=== PATIENT | female | born 1965 | race Caucasian/White ===

== ENCOUNTER 2020-02-07 15:52 | Emergency (ER) | payer MEDICAID ==
[~2020-02-07] VITALS: Ht 154.9 cm; Wt 104.3 kg
[~2020-02-07 15:52] MED LIST: IBUP-974 PO
[2020-02-07 16:02] VITALS: BP 117/71
--- NOTE | 2020-02-07 16:20 | NUR ---
C/O RUQ ABDOMINAL PAIN RADIATING TO RIGHT UPPER BACK, N/V/D X 2 WEEKS, HEADACHE X 3 DAYS.PT AOX4. AFIBRILE ,AMBULATORY WITH STEADY GAIT , ROUND SOFT ABDOMEN ,NABS , NONTENDER. MED HX: ASTHMA
--- NOTE | 2020-02-07 16:21 | NUR ---
dr martins at bedside evaluating pt.
[2020-02-07] MEDS ORDERED: NACL 0.9% 1,000 ML IV ONE (16:24)
[2020-02-07] MEDS ORDERED: KETOROLAC 30 MG/ML VIAL IVP ONE (16:25)
[2020-02-07] MEDS ORDERED: ONDANSETRON 4 MG/2 ML VIAL IVP ONE (16:25)
[2020-02-07] MEDS ORDERED: MORPHINE SULFATE 2 MG/ML SYR IVP ONE (16:25)
[2020-02-07] MEDS ORDERED: METOCLOPRAMIDE 10 MG/2 ML INJ VIAL IVP ONE (16:25)
[2020-02-07] MEDS ORDERED: FAMOTIDINE 20 MG/2 ML VIAL IVP ONE (16:25)
[2020-02-07] MEDS ORDERED: GLYCOPYRROLATE 0.2 MG/ML VIAL IV ONE (16:25)
[2020-02-07 16:52] LABS: BASOPHILS % (AUTO) 0.5 % (0.0-2.0); EOSINOPHILS # (AUTO) 0.3 K/uL (0-0.4); EOSINOPHILS % (AUTO) 5.4 % (0.0-4.0); HEMATOCRIT 38.9 % (36-48); HEMOGLOBIN 13.2 g/dL (12.0-16.0); LYMPHOCYTES # (AUTO) 1.7 K/uL (2.5-16.5); LYMPHOCYTES % (AUTO) 27.9 % (20.5-51.1); MEAN CORPUSCULAR HEMOGLOBIN 31 pg (27-31); MEAN CORPUSCULAR HGB CONC 34 g/dL (33-37); MEAN CORPUSCULAR VOLUME 92.5 fL (80-94); MONOCYTES # (AUTO) 0.4 K/uL (0.8-1.0); MONOCYTES % (AUTO) 6.5 % (1.7-9.3); NEUTROPHILS # (AUTO) 3.6 K/uL (1.8-7.7); NEUTROPHILS % (AUTO) 59.7 % (42.2-75.2); PLATELET COUNT (AUTO) 243 K/uL (140-450); RED BLOOD CELL COUNT(AUTO) 4.21 MIL/uL (4.20-5.40); RED CELL DISTRIBUTION WIDTH 13.8 % (11.6-13.7); WHITE BLOOD COUNT (AUTO) 6.1 K/uL (4.8-10.8)
[2020-02-07 16:53] LABS: APPEARANCE,URINE CLEAR (CLEAR); BILIRUBIN,URINE NEGATIVE (NEGATIVE); BLOOD, URINE NEGATIVE (NEGATIVE); COLOR,URINE YELLOW (YELLOW); LEUKOCYTE ESTERASE ,URINE NEGATIVE (NEGATIVE); NITRITE, URINE NEGATIVE (NEGATIVE); PH,URINE 5.5 (5.0-9.0); UGLUCOSE NEGATIVE (NEGATIVE)
[2020-02-07 17:05] LABS: PROTHROMBIN TIME 9.5 secs (10.8-13.4)
[2020-02-07 17:07] LABS: ALBUMIN 3.8 g/dL (3.4-5.0); ANION GAP 11.9 (8-16); CARBON DIOXIDE 28.8 mmol/L (21-32); POTASSIUM 3.7 mmol/L (3.5-5.1); TOTAL BILIRUBIN 0.5 mg/dL (0.0-1.0)
[2020-02-07 17:18] LABS: URIC ACID 6.9 mg/dL (2.6-7.2)
--- NOTE | 2020-02-07 17:18 | NUR ---
XRAY IS AT BEDSIDE.
--- NOTE | 2020-02-07 17:55 | NUR ---
PT COMFORTABLE IN BED SIDE RAILS UP X1 AND LOCK , NO COMPLAINT AT THIS TIME.
--- NOTE | 2020-02-07 18:00 | NUR ---
DR ARIZMENDI AT BEDSIDE EVALUATING PT.
--- NOTE | 2020-02-07 18:04 | NUR ---
PT TO CT SCAN VIA WHEELCHAIR.
--- NOTE | 2020-02-07 18:12 | NUR ---
PT BACK FROM CT SCAN.
[2020-02-07 18:52] VITALS: BP 102/63
--- NOTE | 2020-02-07 18:53 | NUR ---
Patient discharged with v/s stable. Written and verbal after care instructions given and explained regarding GERD. Patient alert, oriented and verbalized understanding of instructions. Ambulatory with steady gait. All questions addressed prior to discharge. ID band removed. Patient advised to follow up with PMD. Rx of reglan and prilosec given. Patient educated on indication of medication including possible reaction and side effects. Opportunity to ask questions provided and answered.
--- NOTE | 2020-02-08 08:30 | NUR ---
LATE ENTRY- IV NORMAL SALINE DISCONTINUED AT 1853.
== END 2020-02-07 18:53 | disposition home or self-care (01) ==
LOC: MED 15:52
DX: K21.9 Gastro-esophageal reflux disease without esophagitis (principal); J45.909 Unspecified asthma, uncomplicated; K57.92 Diverticulitis of intestine, part unspecified, without perforation or abscess without bleeding; Z79.899 Other long term (current) drug therapy; Z98.890 Other specified postprocedural states
CPT/HCPCS: 36415; 71045; 74176; 76705; 80053; 81003; 82150; 82977; 83605; 83690; 83735; 84484; 84550; 85025; 85610; 85730; 93005; 96361; 96374; 96375; 99285; J1885; J2270; J2405; J2765; J3490; J7030; Q0092